=== PATIENT | female | born 1960 ===

== ENCOUNTER 2022-02-27 06:20 | Day surgery (SDC) | payer OTHER ==
[~2022-02-27] VITALS: Ht 157.5 cm; Wt 54.4 kg
[~2022-02-27 06:20] MED LIST: LISINOPRIL20 MG PO; NASAL MIST126 ML; PROCARDIA PO; ZOCOR PO; [UNRECOGNIZED DRUG - CODE] PO
== END 2022-02-27 16:00 | disposition home or self-care (01) ==
LOC: CIR.AMB 06:20
PROVIDERS: ATTEND Orthopaedic Surgery Hand Surgery
DX: S52.532A Colles' fracture of left radius, initial encounter for closed fracture (principal); Z20.822 Contact with and (suspected) exposure to COVID-19; I10 Essential (primary) hypertension; I38 Endocarditis, valve unspecified; Z86.16 Personal history of COVID-19
CPT/HCPCS: 25609; 25118; 25280; L8699